=== PATIENT | female | born 1940 | race African-American/Black ===

== ENCOUNTER 2018-07-06 19:38 | Inpatient (IN) | payer MEDICAID ==
[~2018-07-06] VITALS: Ht 157.5 cm; Wt 78.5 kg
[2018-07-06] MEDS ORDERED: ACETAMINOPHEN 325MG TABLET PO STA (20:33)
[2018-07-06] MEDS ORDERED: SODIUM CHLORIDE 0.9% 1,000 ML IV ONE (20:33)
[2018-07-06] MEDS ORDERED: ONDANSETRON HCL 4MG/2ML INJ IV STA (20:33)
[2018-07-06] MEDS ORDERED: GUAIFENESIN/CODEINE 200-20MG/10ML UDC PO ONE (20:45)
[2018-07-06] MEDS ORDERED: AZITHROMYCIN 500 MG in DEXT 5% WATER 250 ML IV ONE (20:45)
[2018-07-06] MEDS ORDERED: CEFTRIAXONE 1 G PREMIX 50 ML IV ONE (20:45)
[2018-07-06 20:46] LABS: BASOPHILS % 0.3 % (0.0-2.0); HEMATOCRIT. 40.4 % (36.0-48.0); HEMOGLOBIN. 13.2 g/dL (12.0-16.0); LYMPHOCYTES % 7.5 % (20.0-50.0); MEAN CORPUSCULAR HEMOGLOBIN 26.7 pg (28.0-32.0); MEAN CORPUSCULAR VOLUME 81.6 fL (81.0-99.0); MEAN PLATELET VOLUME 7.2 fl (7.4-10.4); MONOCYTES % 9.7 % (2.0-8.0); NEUTROPHILS % 82.5 % (40.0-76.0); PLATELET 235 x1000/uL (130-400); RED BLOOD CELL COUNT 4.95 mill/uL (4.2-5.4); RED CELL DISTRIBUTION WIDTH 14.4 % (11.6-14.6)
[2018-07-06 20:55] LABS: CHLORIDE 102 mEq/L (98-107)
[2018-07-06 21:32] LABS: CLARITY URINE CLOUDY (CLEAR); COLOR URINE YELLOW (YELLOW); KETONES URINE 1+ (NEGATIVE); LEUKOCYTE ESTERASE URINE 1+ (NEGATIVE); NITRITE URINE NEGATIVE (NEGATIVE); OCCULT BLOOD URINE NEGATIVE (NEGATIVE); PH URINE 8.5 (4.5-8.0); PROTEIN URINE TRACE (NEGATIVE); SPECIFIC GRAVITY URINE 1.022 (1.005-1.030)
[2018-07-06] MEDS ORDERED: IPRATROPIUM/ALBUTEROL 0.5-3(2.5)MG/3ML NEB INH PRN (21:45)
[2018-07-06] MEDS ORDERED: CLONIDINE 0.1MG TABLET PO PRN (21:45)
[2018-07-06] MEDS ORDERED: AZITHROMYCIN 500 MG in DEXT 5% WATER 250 ML IV SCH (21:45)
[2018-07-06] MEDS ORDERED: ZOLPIDEM TARTRATE 5MG TABLET PO PRN (21:45)
[2018-07-06] MEDS ORDERED: ONDANSETRON HCL 4MG/2ML INJ IV PRN (21:45)
[2018-07-06] MEDS ORDERED: MAGNESIUM/ALUMINUM HYDROXIDE/SIMETHICONE 30ML UDC PO PRN (21:45)
[2018-07-06] MEDS ORDERED: DOCUSATE SODIUM 100MG CAPSULE PO PRN (21:45)
[2018-07-06] MEDS ORDERED: GUAIFENESIN 200MG/10ML SUGAR FREE UDC PO PRN (21:45)
[2018-07-06] MEDS ORDERED: NITROGLYCERIN 0.4MG TABLET SL SL PRN (21:45)
[2018-07-06] MEDS ORDERED: IOHEXOL-350 100 ML BOTTLE ONE (22:58)
[2018-07-06 23:27] LABS: LDL CHOLESTEROL 95 mg/dL (5-100)
[2018-07-06 23:28] LABS: HDL CHOLESTEROL 43 mg/dL (40-59)
[2018-07-06 23:29] LABS: CREATINE KINASE 346 IU/L (26-192)
[2018-07-06 23:30] LABS: CREATINE KINASE MB FRACTION 2.4 ng/mL (0.5-3.6)
[2018-07-07] VITALS (8 sets, daily range): BP systolic 103–136; BP diastolic 63–85
[2018-07-07] MEDS ORDERED: ALEN70TA46 PO (01:00)
[2018-07-07] MEDS: KETOROLAC 15MG/ML VIAL IV PRN ×2 (03:59→20:20)
[2018-07-07 06:51] LABS: CREATINE KINASE 495 IU/L (26-192)
[2018-07-07 06:53] LABS: CREATINE KINASE MB FRACTION 2.5 ng/mL (0.5-3.6)
[2018-07-07] MEDS: ASCORBIC ACID 500 MG TABLET PO SCH ×2 (08:38→20:19)
[2018-07-07] MEDS: ZINC SULFATE 220 MG ( 50 ) CAPSULE PO SCH (08:38)
[2018-07-07] MEDS: ACETAMINOPHEN 325MG TABLET PO PRN ×2 (08:38→20:20)
[2018-07-07] MEDS: ENOXAPARIN 40MG/0.4ML SYR SUBCUT SCH (08:38)
[2018-07-07] MEDS: ASPIRIN 325MG EC TABLET PO SCH (08:39)
[2018-07-07] MEDS: OSELTAMIVIR 75MG CAPSULE PO SCH ×2 (08:39→20:19)
[2018-07-07] MEDS: FAMOTIDINE 20MG TABLET PO SCH ×2 (08:39→20:19)
[2018-07-07] MEDS: GUAIFENESIN/DM 600MG/30MG ER TAB 12HR PO SCH ×2 (08:39→20:19)
[2018-07-07] MEDS: METOPROLOL TARTRATE 25MG TABLET PO SCH ×2 (08:41→20:19)
[2018-07-07] MEDS ORDERED: CEFTRIAXONE 1 G PREMIX 50 ML IV SCH ×2 (09:00→22:00)
[2018-07-07] MEDS ORDERED: AZITHROMYCIN 500 MG in DEXT 5% WATER 250 ML IV SCH (21:00)
[2018-07-08] VITALS: BP 105/78
[2018-07-08 04:00] VITALS: BP 121/70
[2018-07-08 08:00] VITALS: BP 110/79
[2018-07-08] MEDS: ASCORBIC ACID 500 MG TABLET PO SCH (08:38)
[2018-07-08] MEDS: OSELTAMIVIR 75MG CAPSULE PO SCH (08:38)
[2018-07-08] MEDS: ZINC SULFATE 220 MG ( 50 ) CAPSULE PO SCH (08:38)
[2018-07-08] MEDS: GUAIFENESIN/DM 600MG/30MG ER TAB 12HR PO SCH (08:38)
[2018-07-08] MEDS: FAMOTIDINE 20MG TABLET PO SCH (08:38)
[2018-07-08] MEDS: ENOXAPARIN 40MG/0.4ML SYR SUBCUT SCH (08:38)
[2018-07-08] MEDS: ASPIRIN 325MG EC TABLET PO SCH (08:38)
[2018-07-08] MEDS: METOPROLOL TARTRATE 25MG TABLET PO SCH (08:41)
[2018-07-08 10:32] VITALS: BP 115/74
[2018-07-08 12:00] VITALS: BP 115/74
== END 2018-07-08 15:15 | disposition home or self-care (01) | DRG 139 ==
LOC: ER 19:38 → 7WST 21:25 → EDBEDREQSVC 21:28 → EDBEDREQ 21:28 → EDBEDREQTM 21:28 → ENRESERV 22:45
PROVIDERS: ADMIT Internal Medicine; ATTEND Internal Medicine
DX: J11.00 Influenza due to unidentified influenza virus with unspecified type of pneumonia (principal); I10 Essential (primary) hypertension; Z90.49 Acquired absence of other specified parts of digestive tract
CPT/HCPCS: 36415; 71045; 71275; 80061; 82550; 82553; 83036; 83605; 83880; 84145; 84484; 87804; 93005; 93970; 94640; 96365; 96367; 96375; 99285; J0456; J0696; J1650; J1885; J2405; J7030; J7050; J7060; J7620; Q9967